=== PATIENT | female | born 1960 ===

== ENCOUNTER 2024-02-02 08:53 | Outpatient (CLI) | payer OTHER ==
[~2024-02-02 08:53] MED LIST: GLYBURIDE5 MG; HUMALOG MIX 50/53 ML; KETO10TA2 PO; LANTUS100 U/ML; NEURONTIN600 MG PO; ORPH100T PO
== END 2024-02-02 08:56 | disposition home or self-care (01) ==
LOC: SONOGRAMA 08:53
PROVIDERS: ATTEND Pathology Anatomic Pathology & Clinical Pathology
DX: E04.1 Nontoxic single thyroid nodule (principal)